=== PATIENT | female | born 1965 | race Caucasian/White ===

== ENCOUNTER → 2019-02-28 | Day surgery (SDC) | payer BC | LOC: MSO 07:31 | DX: Z12.11 Encounter for screening for malignant neoplasm of colon (principal) | CPT/HCPCS: 00812; J2704; J3010; J7120 ==

== ENCOUNTER → 2020-12-17 | Outpatient (CLI) | payer BC | LOC: RAD 11:20 | DX: E04.1 Nontoxic single thyroid nodule (principal) ==